=== PATIENT | female | born 1975 | race Caucasian/White ===

== ENCOUNTER 2017-03-18 10:35 | Emergency (ER) | payer MEDICAID, OTHER ==
[2017-03-18 10:54] VITALS: BP 126/89; PULSE 87; RESP 20; TEMP 98.3; O2SAT 100
[2017-03-18 10:56] VITALS: BMI 21.7
--- NOTE | 2017-03-18 11:09 | C.PDOC ---
History Of Present Illness 42 yr old female with PMHx of HTN, presents to the ER with complaints of sore throat, congestion, fever and cough for the past 5 days. Patient denies chest pain, SOB, nausea, vomiting, headache, weakness or numbness. Time Seen by Provider: 03/18/17 10:56 Chief Complaint (Nursing): Cough, Cold, Congestion History Per: Patient History/Exam Limitations: no limitations Onset/Duration Of Symptoms: Days (5) Current Symptoms Are (Timing): Still Present Past Medical History Reviewed: Historical Data, Nursing Documentation, Vital Signs Vital Signs: Last Vital Signs Temp 98.3 F 03/18/17 10:50 Pulse 87 03/18/17 10:50 Resp 20 03/18/17 10:50 BP 126/89 03/18/17 10:50 Pulse Ox 100 03/18/17 13:00 - Medical History PMH: Depression, HTN Surgical History: Cholecystectomy Family History: States: No Known Family Hx - Social History Hx Alcohol Use: No Hx Substance Use: No - Immunization History Hx Tetanus Toxoid Vaccination: No Hx Influenza Vaccination: No Hx Pneumococcal Vaccination: No Review Of Systems Except As Marked, All Systems Reviewed And Found Negative. Constitutional: Positive for: Fever (Subjective) ENT: Positive for: Throat Pain (Sore throat ) Cardiovascular: Positive for: Other (Chest congetsion ). Negative for: Chest Pain Respiratory: Positive for: Cough. Negative for: Shortness of Breath Gastrointestinal: Negative for: Nausea, Vomiting Neurological: Negative for: Weakness, Numbness, Headache Physical Exam - Physical Exam Appears: Well, Non-toxic, No Acute Distress Skin: Warm, Dry, No Rash Head: Atraumatic, Normacephalic Oral Mucosa: Moist Throat: Erythema (Pharyanx ), No Exudate Neck: Normal, Normal ROM, Supple Chest: Symmetrical, No Tenderness Cardiovascular: Rhythm Regular, No Murmur Respiratory: Normal Breath Sounds, No Rales, No Rhonchi, No Stridor, No Wheezing Extremity: Normal ROM, No Swelling Neurological/Psych: Oriented x3, Normal Speech, Normal Motor ED Course And Treatment O2 Sat by Pulse Oximetry: 100 - Other Rad CXR X-Ray: Viewed By Me, Read By Radiologist Interpretation: HISTORY: cough. COMPARISON: No prior. TECHNIQUE: Chest PA and lateral. FINDINGS: LUNGS: No active pulmonary disease. PLEURA: No significant pleural effusion identified. No pneumothorax apparent. CARDIOVASCULAR: Normal. OSSEOUS STRUCTURES: No significant abnormalities. VISUALIZED UPPER ABDOMEN: Normal. OTHER FINDINGS: None. IMPRESSION: No active disease. Progress Note: On reevaluation, patient is resting comfortably. Patient was treated with Tylenol PO. Tested negative for influenza and strep. Medical Decision Making Medical Decision Making: PLAN: * CXR * Influenza * Rapid Strep * Tyelnol PO Disposition - Disposition Referrals: [facility] [Outside] [facility]Outside[email or web address] Disposition: HOME/ ROUTINE Disposition Time: 12:57 Condition: STABLE Additional Instructions: please see your doctor/clinc. return to er with worsening symptoms or concerns. Prescriptions: Ibuprofen [Motrin Tab] 400 mg PO Q6 PRN #20 tab PRN Reason: Fever >100.4 F Instructions: Viral Syndrome (ED) Print Language: KAZAKH - Clinical Impression Clinical Impression: Viral syndrome - Scribe Statement The provider has reviewed the documentation as recorded by the Naif Olvera Provider Attestation: All medical record entries made by the Naif were at my direction and personally dictated by me. I have reviewed the chart and agree that the record accurately reflects my personal performance of the history, physical exam, medical decision making, and the department course for this patient. I have also personally directed, reviewed, and agree with the discharge instructions and disposition.
--- NOTE | 2017-03-18 11:51 | RAD ---
HISTORY: cough COMPARISON: No prior. TECHNIQUE: Chest PA and lateral FINDINGS: LUNGS: No active pulmonary disease. PLEURA: No significant pleural effusion identified. No pneumothorax apparent. CARDIOVASCULAR: Normal. OSSEOUS STRUCTURES: No significant abnormalities. VISUALIZED UPPER ABDOMEN: Normal. OTHER FINDINGS: None. IMPRESSION: No active disease.
== END 2017-03-18 13:08 | disposition home or self-care (01) ==
LOC: C.ER 10:35
DX: B34.9 Viral infection, unspecified (principal)